=== PATIENT | female | born 1995 | race African-American/Black ===

== ENCOUNTER 2017-04-10 20:45 | Emergency (ER) | payer OTHER ==
[~2017-04-10] VITALS: Ht 165.1 cm; Wt 76.2 kg
[~2017-04-10 20:45] MED LIST: BACTRIM DS TAB1 EACH PO; COLACE100 MG PO; FLONASE 0.05%50 MCG NASAL; IBUPROFEN 800800 MG PO; NOHOMEMEDICATIONS; NORCO 5-325 TA1 EACH PO; PENICILLIN V P500 MG PO; PENICILLIN VK500 M1 PO; ULTRAM 50MG TAB50 MG PO; ZPAK PO; [UNRECOGNIZED DRUG - OTHER]
[2017-04-10 21:13] LABS: URINE BILIRUBIN NEGATIVE (Negative); URINE BLOOD NEGATIVE (Negative); URINE COLOR YELLOW; URINE GLUCOSE-RANDOM* NEGATIVE (Negative); URINE KETONES NEGATIVE (Negative); URINE LEUKOCYTES-REFLEX NEGATIVE (Negative); URINE PROTEIN (DIPSTICK) NEGATIVE (Negative); URINE UROBILINOGEN 0.2 E.U./dl (0.2-1.0)
[2017-04-10 21:17] LABS: ABSOLUTE NEUTROPHILS 3.7 thou/uL (1.4-8.2); BASOPHILS 0.7 % (0.0-2.0); HEMATOCRIT 40.1 % (37.0-47.0); HEMOGLOBIN 13.2 gm/dL (12.0-15.0); LYMPHOCYTES 29.7 % (24.0-44.0); MCH 26.8 pg (26.0-34.0); MCV 81.4 fL (80.0-100.0); MONOCYTES 7.9 % (1.0-8.0); PLATELET COUNT 299 thou/uL (150-400); POLYS 57.7 % (36.0-66.0); RBC 4.93 mil/uL (4.20-5.00); RDW 13.7 % (10.5-14.5); WBC 6.4 thou/uL (4.0-11.0)
[2017-04-10 21:19] LABS: MANUAL DIFF NO
[2017-04-10 21:24] LABS: ANION GAP 9 mmol/L (7-16); BUN 10 mg/dL (7-18); CALCIUM 9.5 mg/dL (8.5-10.1); CHLORIDE 104 mmol/L (98-107); CO2 27 mmol/L (21-32); GLUCOSE 111 mg/dL (74-106); POTASSIUM 3.9 mmol/L (3.5-5.1); SODIUM 140 mmol/L (136-145)
[2017-04-10 21:29] LABS: ALBUMIN 3.9 g/dL (3.4-5.0); ALKALINE PHOSPHATASE 82 U/L (46-116); DIRECT BILIRUBIN < 0.1 mg/dL (<0.1-0.3); SGOT 22 U/L (15-37); SGPT 22 U/L (30-65); TOTAL BILIRUBIN 0.3 mg/dL (<0.1-1.0); TOTAL PROTEIN 8.3 g/dL (6.4-8.2)
[2017-04-10] MEDS ORDERED: PRILOSEC 20 MG20 MG PO (22:28)
[2017-04-10] MEDS ORDERED: NORCO 5-325 TA1 EACH PO (22:28)
[2017-04-10 22:38] VITALS: BP 113/74
[2017-04-10] MEDS ORDERED: CARAFATE 1 GM TA1 G1 PO (22:55)
== END 2017-04-10 23:13 | disposition home or self-care (01) ==
LOC: ER 20:45
PROVIDERS: Emergency Medicine
DX: R10.13 Epigastric pain (principal); R10.12 Left upper quadrant pain; Z91.040 Latex allergy status

== ENCOUNTER 2017-07-20 18:37 | Emergency (ER) | payer OTHER ==
[~2017-07-20] VITALS: Ht 165.1 cm; Wt 76.2 kg
[~2017-07-20 18:37] MED LIST changes: +CARAFATE 1 GM TA1 G1 PO; +PRILOSEC 20 MG20 MG PO
[2017-07-20 22:55] LABS: ABSOLUTE NEUTROPHILS 4.8 thou/uL (1.4-8.2); BASOPHILS 0.3 % (0.0-2.0); HEMATOCRIT 36.9 % (37.0-47.0); HEMOGLOBIN 12.4 gm/dL (12.0-15.0); LYMPHOCYTES 23.9 % (24.0-44.0); MCH 26.8 pg (26.0-34.0); MCHC 33.5 g/dL (28.0-37.0); MCV 79.8 fL (80.0-100.0); MONOCYTES 6.3 % (1.0-8.0); PLATELET COUNT 261 thou/uL (150-400); POLYS 67.5 % (36.0-66.0); RBC 4.63 mil/uL (4.20-5.00); RDW 13.4 % (10.5-14.5); WBC 7.1 thou/uL (4.0-11.0)
[2017-07-20 22:56] LABS: MANUAL DIFF NO
[2017-07-20] MEDS ORDERED: IBUPROFEN 800800 M1 PO (23:02)
[2017-07-20 23:10] LABS: CALCIUM 9.3 mg/dL (8.5-10.1); CREATININE 0.8 mg/dL (0.6-1.0)
[2017-07-21 00:18] VITALS: BP 118/79
== END 2017-07-21 00:19 | disposition home or self-care (01) ==
LOC: ER 18:37
PROVIDERS: Nurse Practitioner Family
DX: S16.1XXA Strain of muscle, fascia and tendon at neck level, initial encounter (principal); S39.91XA Unspecified injury of abdomen, initial encounter; S09.90XA Unspecified injury of head, initial encounter; Z91.040 Latex allergy status; V89.2XXA Person injured in unspecified motor-vehicle accident, traffic, initial encounter; Y93.89 Activity, other specified; Y92.89 Other specified places as the place of occurrence of the external cause; Y99.8 Other external cause status

== ENCOUNTER 2017-07-28 20:36 | Emergency (ER) | payer OTHER ==
[~2017-07-28] VITALS: Ht 165.1 cm; Wt 76.2 kg
[~2017-07-28 20:36] MED LIST changes: +IBUPROFEN 800800 M1 PO
[2017-07-28 20:37] VITALS: BP 139/91
[2017-07-28] MEDS ORDERED: NAPROSYN500 MG PO (20:52)
== END 2017-07-28 21:07 | disposition home or self-care (01) ==
LOC: ER 20:36
DX: I80.8 Phlebitis and thrombophlebitis of other sites (principal); Z91.040 Latex allergy status